=== PATIENT | male | born 1980 | race Caucasian/White ===

== ENCOUNTER 2017-11-16 18:59 | Observation (INO) | payer OTHER ==
[2017-11-16] MEDS ORDERED: Metoclopramide IV* 5 MG/ML 2 ML VIAL IV ONE (19:34)
[2017-11-16] MEDS ORDERED: Morphine VIAL* 4 MG/ML VIAL (1 ml vial) IV ONE (19:42)
[2017-11-16 19:57] LABS: Hematocrit 45 % (42-52); Hemoglobin 15.2 g/dl (14.0-18.0); Mean Corpuscular HGB Conc 34 g/dl (31-36); Mean Corpuscular Hemoglobin 32 pg (27-31); Mean Corpuscular Volume 95 fL (80-94); Platelet Count 191 10^3/ul (150-450); Red Blood Count 4.69 10^6/ul (4.00-5.40); Red Cell Distribution Width 13 % (10.5-15); White Blood Count 22.2 10^3/ul (3.5-10.8)
[2017-11-16 19:59] LABS: ABS Basophils 0.1 10^3/ul (0-0.2); ABS Eosinophils 0 10^3/ul (0-0.6); ABS Lymphocytes 0.7 10^3/ul (1.0-4.8); ABS Monocytes 0.7 10^3/ul (0-0.8); ABS Neutrophils 20.7 10^3/ul (1.5-7.7)
[2017-11-16 20:15] LABS: EGFR Non-African American 77.4 (>60)
[2017-11-16 20:18] LABS: ABS Nucleated RBC 0 10^3/ul; Eosinophil % 0.1 % (0-6); Lymphocyte % 3.1 % (25-47); Nucleated Red Blood Cells % 0
[2017-11-16] MEDS ORDERED: NS 0.9% 1000 ML* 1,000 ML IV ONE (20:28)
[2017-11-16] MEDS: NS 0.9% 1000 ML* 2,000 ML IV ONE (20:29)
[2017-11-16 21:00] LABS: INR 0.97 (0.77-1.02)
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
--- NOTE | 2017-11-16 21:26 | RAD ---
Indication: Left leg injury. 3 views of left leg demonstrates fracture of the lateral tibial plateau with distraction of the fracture fragments and displacement laterally. IMPRESSION: Fracture of the left knee lateral tibial plateau with distraction of the fracture fragments and lateral displacement of the main fracture fragment.. Joint effusion is noted.
--- NOTE | 2017-11-16 21:27 | RAD ---
Indication: Right shoulder pain. 4 views of the right shoulder demonstrates no fracture. No other bone or joint abnormality is identified. IMPRESSION: No fracture of the right shoulder.
[2017-11-16] MEDS ORDERED: ceFAZolin 2 GM PREMIX (*) 0 GM/0 ML BAG IVPB ONE (21:28)
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
[2017-11-16] MEDS ORDERED: Sodium Citrate/Citric Acid* 15 ML UDC ONE (21:46)
[2017-11-16] MEDS ORDERED: Sodium Citrate/Citric Acid* 15 ML UDC PO ONE (21:56)
[2017-11-16] MEDS ORDERED: fentaNYL* 50 MCG/ML 2 ML VIAL (100 MCG VIAL) ONE ×3 (22:03→23:09)
[2017-11-16] MEDS ORDERED: Lidocaine 2% PF * 5 ML VIAL ONE (22:24)
[2017-11-16] MEDS ORDERED: Propofol* 10 MG/ML 20 ML BTL IV PUSH ONE (22:24)
[2017-11-16] MEDS ORDERED: diPHENhydraMINE IV* 50 MG/ML 1 ml VIAL (BENADRYL) IV PRN (22:31)
[2017-11-16] MEDS ORDERED: Ondansetron INJ* 2 MG/ML VIAL IV PRN (22:31)
[2017-11-16] MEDS ORDERED: oxyCODONE/Acetamin 5/325 MG* TAB PO PRN (22:31)
[2017-11-16] MEDS ORDERED: Ketorolac INJ* 30 MG/ML 1 ML VIAL IV PRN (22:40)
[2017-11-16] MEDS ORDERED: Naloxone* 0.4 MG/ML 1 ML VIAL IV PRN (22:40)
[2017-11-16] MEDS: fentaNYL* 50 MCG/ML 2 ML VIAL (100 MCG VIAL) IV PRN ×4 (22:50→23:18)
[2017-11-17] MEDS: oxyCODONE/Acetamin 5/325 MG* TAB PO PRN ×4 (00:07→13:18)
[2017-11-17] MEDS: Morphine INJ* 10 MG/ML 1 ML CARPUJECT IV PRN ×2 (00:55→07:23)
[2017-11-17 06:29] LABS: ABS Basophils 0 10^3/ul (0-0.2); ABS Eosinophils 0 10^3/ul (0-0.6); ABS Lymphocytes 1.9 10^3/ul (1.0-4.8); ABS Neutrophils 7.1 10^3/ul (1.5-7.7); ABS Nucleated RBC 0 10^3/ul; Eosinophil % 0.4 % (0-6); Hematocrit 38 % (42-52); Hemoglobin 13.2 g/dl (14.0-18.0); Lymphocyte % 18.9 % (25-47); Mean Corpuscular HGB Conc 35 g/dl (31-36); Mean Corpuscular Hemoglobin 33 pg (27-31); Mean Corpuscular Volume 95 fL (80-94); Mean Platelet Volume 9.8 um3 (7.4-10.4); Nucleated Red Blood Cells % 0; Platelet Count 156 10^3/ul (150-450); Red Blood Count 4.02 10^6/ul (4.00-5.40); Red Cell Distribution Width 13 % (10.5-15)
[2017-11-17 07:24] LABS: Urine Appearance Clear; Urine Blood Negative (Negative); Urine Color Straw; Urine Ketones Negative (Negative); Urine Protein Negative (Negative); Urine Specific Gravity 1.008 (1.010-1.030); Urine Urobilinogen Negative (Negative)
--- NOTE | 2017-11-17 07:29 | RAD ---
INDICATION: Closed reduction left knee in operating room. COMPARISON: Comparison is made with a prior x-ray study of the left knee from November 16, 2017. TECHNIQUE: 3.1 seconds of intermittent fluoroscopic guidance were provided and a single spot film of the left knee was obtained in the operating room. FINDINGS: There is a comminuted depressed fracture of the lateral tibial plateau. IMPRESSION: INTRAOPERATIVE CONTROL FILMS. CPT II Codes: G9500
--- NOTE | 2017-11-17 07:52 | PN ---
Progress Note - Progress Note Date of Service: 11/17/17 SOAP: Subjective: [] Patient seen at bedside. He feels well with tolerable pain rated 5/10. Denies CP, SOB, dizziness. Objective: [ Vital Signs Temp 98.3 F 11/17/17 07:38 Pulse 60 11/17/17 07:38 Resp 16 11/17/17 09:03 BP 108/58 11/17/17 07:38 Pulse Ox 98 11/17/17 07:38 Intake & Output 11/16/17 11/17/17 11/17/17 18:59 06:59 18:59 Intake Total 3540 509 Output Total 1100 375 Balance 2440 134 Weight 245 lb Intake: IV Fluids 3000 509 LR 509 Lactated Ringersd 1000 Oral 540 Output: Urine 1100 375 Laboratory Last Values WBC 10.0 10^3/ul (3.5-10.8) 11/17/17 05:58 RBC 4.02 10^6/ul (4.00-5.40) 11/17/17 05:58 Hgb 13.4 g/dl (14.0-18.0) L 11/17/17 09:54 Hct 39 % (42-52) L 11/17/17 09:54 MCV 95 fL (80-94) H 11/17/17 05:58 MCH 33 pg (27-31) H 11/17/17 05:58 MCHC 35 g/dl (31-36) 11/17/17 05:58 RDW 13 % (10.5-15) 11/17/17 05:58 Plt Count 156 10^3/ul (150-450) 11/17/17 05:58 MPV 9.8 um3 (7.4-10.4) 11/17/17 05:58 Neut % (Auto) 70.5 % (38-83) 11/17/17 05:58 Lymph % (Auto) 18.9 % (25-47) L 11/17/17 05:58 [place] % (Auto) 9.9 % (0-7) H 11/17/17 05:58 Eos % (Auto) 0.4 % (0-6) 11/17/17 05:58 Baso % (Auto) 0.3 % (0-2) 11/17/17 05:58 Absolute Neuts (auto) 7.1 10^3/ul (1.5-7.7) 11/17/17 05:58 Absolute Lymphs (auto) 1.9 10^3/ul (1.0-4.8) 11/17/17 05:58 Absolute Monos (auto) 1.0 10^3/ul (0-0.8) H 11/17/17 05:58 Absolute Eos (auto) 0 10^3/ul (0-0.6) 11/17/17 05:58 Absolute Basos (auto) 0 10^3/ul (0-0.2) 11/17/17 05:58 Absolute Nucleated RBC 0 10^3/ul 11/17/17 05:58 Nucleated RBC % 0 11/17/17 05:58 INR (Anticoag Therapy) 0.97 (0.77-1.02) 11/16/17 19:52 APTT 25.5 seconds (26.0-36.3) L 11/16/17 19:52 Sodium 138 mmol/L (135-145) 11/17/17 09:54 Potassium 3.7 mmol/L (3.5-5.0) 11/17/17 09:54 Chloride 107 mmol/L (101-111) 11/17/17 09:54 Carbon Dioxide 27 mmol/L (22-32) 11/17/17 09:54 Anion Gap 4 mmol/L (2-11) 11/17/17 09:54 BUN 13 mg/dL (6-24) 11/16/17 19:52 Creatinine 1.08 mg/dL (0.67-1.17) 11/16/17 19:52 Est GFR ( Amer) 93.6 (>60) 11/16/17 19:52 Est GFR (Non-Af Amer) 77.4 (>60) 11/16/17 19:52 BUN/Creatinine Ratio 12.0 (8-20) 11/16/17 19:52 Glucose 95 mg/dL (70-100) 11/16/17 19:52 Lactic Acid 2.7 mmol/L (0.5-2.0) H* 11/16/17 19:52 Calcium 8.5 mg/dL (8.6-10.3) L 11/17/17 09:54 Total Bilirubin 0.70 mg/dL (0.2-1.0) 11/16/17 19:52 AST 34 U/L (13-39) 11/16/17 19:52 ALT 34 U/L (7-52) 11/16/17 19:52 Alkaline Phosphatase 80 U/L (34-104) 11/16/17 19:52 CK-MB (CK-2) 4.2 ng/mL (0.6-6.3) 11/16/17 19:52 Total Protein 7.0 g/dL (6.4-8.9) 11/16/17 19:52 Albumin 4.2 g/dL (3.2-5.2) 11/16/17 19:52 Globulin 2.8 g/dL (2-4) 11/16/17 19:52 Albumin/Globulin Ratio 1.5 (1-3) 11/16/17 19:52 Amylase 66 U/L (29-103) 11/16/17 19:52 Lipase 21 U/L (11.0-82.0) 11/16/17 19:52 Urine Color Straw 11/17/17 05:55 Urine Appearance Clear 11/17/17 05:55 Urine pH 5.0 (5-9) 11/17/17 05:55 Ur Specific Carnation 1.008 (1.010-1.030) L 11/17/17 05:55 Urine Protein Negative (Negative) 11/17/17 05:55 Urine Ketones Negative (Negative) 11/17/17 05:55 Urine Blood Negative (Negative) 11/17/17 05:55 Urine Nitrate Negative (Negative) 11/17/17 05:55 Urine Bilirubin Negative (Negative) 11/17/17 05:55 Urine Urobilinogen Negative (Negative) 11/17/17 05:55 Ur Leukocyte Esterase Trace (Negative) A 11/17/17 05:55 Urine WBC (Auto) Trace(0-5/hpf) (Absent) 11/17/17 05:55 Urine RBC (Auto) Trace(0-2/hpf) (Absent) 11/17/17 05:55 Urine Bacteria Absent (Absent) 11/17/17 05:55 Urine Glucose Negative (Negative) 11/17/17 05:55 ]General: Well appearing, NAD LLE: Immobilizer in place. DP/PT 2+, sensation intact distally. DF/PF intact. BL LE: calves supple and nontender without erythema, edema or palpable cords Assessment: []s/p closed reduction left tibial plateau Plan: []LYRIC skelton PT/OT
--- NOTE | 2017-11-17 08:06 | RAD ---
INDICATION: Traumatic tibial plateau fracture. COMPARISON: Correlation is made with a prior x-ray study of the left knee from November 16, 2017. TECHNIQUE: Contiguous axial sections were obtained of the left knee. Images were reconstructed in the sagittal and coronal planes. FINDINGS: There is a moderate to large lipohemarthrosis. There is an oblique comminuted fracture of the lateral tibial plateau. The fracture extends from the region of the tibial spines inferiorly through the lateral metaphysis. There is depression and significant lateral displacement of the major fracture fragment which is approximately 2.3 cm lateral to its normal position. In addition there are several fracture fragments with the which are displaced proximally adjacent to the lateral aspect of the lateral femoral condyle. The largest fracture fragment measures 1.6 x 1.8 cm in size. In addition there is a much smaller slightly comminuted fracture involving the medial tibial plateau with slight proximal distraction of several small fracture fragments. There is an oblique nondisplaced fracture of the fibular head. IMPRESSION: 1. OBLIQUE, COMMINUTED DISPLACED LATERAL TIBIAL PLATEAU FRACTURE IS DESCRIBED. 2. SLIGHTLY COMMINUTED MILDLY DISPLACED MEDIAL TIBIAL PLATEAU FRACTURE. 3. OBLIQUE NONDISPLACED FRACTURE OF THE PROXIMAL FIBULA. 4. LIPOHEMARTHROSIS.
[2017-11-17] MEDS ORDERED: Nicotine PATCH 14 MG/24 HR* PATCH TRANSDERM SCH (09:00)
[2017-11-17] MEDS ORDERED: Enoxaparin(*) 40 MG/0.4 ML SYR SUBCUT SCH (09:00)
[2017-11-17 10:07] LABS: Hematocrit 39 % (42-52); Hemoglobin 13.4 g/dl (14.0-18.0)
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
--- NOTE | 2017-11-17 12:00 | PN ---
Progress Note - Progress Note Date of Service: 11/17/17 Note: Spoke with patient this morning. Pain well controlled. He is hoping to continue using Percocet for pain control. He is concerned about pain control with increased activity. He would like to go home today if possible. Will reassess after next dose of Percocet, around 13:00, and physical therapy. If well tolerated will discharge home.
[2017-11-17 13:24] VITALS: BP 123/63
[2017-11-17] MEDS ORDERED: oxyCODONE TAB* 5 MG TAB PO ONE (16:21)
[2017-11-17] MEDS ORDERED: Nicotine Patch Removal NOTE PATCH OFF SCH (21:00)
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
== END 2017-11-17 17:00 | disposition home or self-care (01) ==
LOC: ED 18:59 → OR 21:52 → SSU 23:37
PROVIDERS: ADMIT Orthopaedic Surgery; ATTEND Orthopaedic Surgery
DX: S82.142A Displaced bicondylar fracture of left tibia, initial encounter for closed fracture (principal); V28.0XXA Motorcycle driver injured in noncollision transport accident in nontraffic accident, initial encounter; T14.8XXA Other injury of unspecified body region, initial encounter; F17.200 Nicotine dependence, unspecified, uncomplicated; R07.9 Chest pain, unspecified; R42 Dizziness and giddiness; M25.511 Pain in right shoulder; Z79.899 Other long term (current) drug therapy
CPT/HCPCS: 36415; 71045; 76000; 80048; 80053; 81003; 81015; 82150; 82553; 83605; 83690; 85014; 85018; 85025; 85610; 85730; 87086; 96374; 96375; 99284; A9270-GY; G0378; J0690; J1650; J2270; J2704; J2765; J3010

== ENCOUNTER 2017-11-24 10:33 | Observation (INO) | payer OTHER ==
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
[~2017-11-24 10:33] MED LIST: Buffered Lidocaine 0.9% SYRIN* 5 ML/SYR SYRINGE INTRADERM ONE; Sodium Citrate/Citric Acid* 15 ML UDC PO ONE
[2017-11-24] MEDS ORDERED: Sodium Citrate/Citric Acid* 15 ML UDC ONE (10:57)
[2017-11-24] MEDS ORDERED: Buffered Lidocaine 0.9% SYRIN* 5 ML/SYR SYRINGE ONE (10:57)
[2017-11-24] MEDS ORDERED: ceFAZolin 2 GM PREMIX (*) 2 GM/50 ML BAG IVPB ONE (10:57)
[2017-11-24] MEDS ORDERED: Bupivacaine 0.5% PF 10 ML VIAL INJ ONE (12:15)
[2017-11-24] MEDS ORDERED: fentaNYL* 50 MCG/ML 5 ML VIAL (250 MCG VIAL) ONE (13:22)
[2017-11-24] MEDS ORDERED: Midazolam* 1 MG/ML 2 ML VIAL (2 MG) ONE (13:23)
[2017-11-24] MEDS ORDERED: KETAMINE HCL* 50 MG/ML 10 ML VIAL ONE (13:28)
[2017-11-24] MEDS ORDERED: Dexamethasone IV* 4 MG/ML 1 ML (4 MG) ONE (17:01)
[2017-11-24] MEDS ORDERED: Ketorolac INJ* 30 MG/ML 1 ML VIAL ONE (17:01)
[2017-11-24] MEDS ORDERED: Propofol* 10 MG/ML 20 ML BTL IV PUSH ONE (17:01)
[2017-11-24] MEDS ORDERED: Ondansetron INJ* 2 MG/ML VIAL IV PRN ×2 (17:32→17:34)
[2017-11-24] MEDS ORDERED: Naloxone* 0.4 MG/ML 1 ML VIAL IV PRN (17:32)
[2017-11-24] MEDS ORDERED: diPHENhydraMINE PO* 25 MG PO PRN (17:34)
[2017-11-24] MEDS ORDERED: oxyCODONE/Acetamin 5/325 MG* TAB PO PRN (17:34)
[2017-11-24] MEDS ORDERED: Ondansetron ODT TAB* 4 MG PO PRN (17:34)
[2017-11-24] MEDS ORDERED: Magnesium Hydroxide LIQ* 30 ML UDC PO PRN (17:34)
[2017-11-24] MEDS ORDERED: Acetaminophen TAB* 325 MG PO PRN (17:34)
[2017-11-24] MEDS ORDERED: Bisacodyl SUPP* 10 MG SUPP PR PRN (17:34)
[2017-11-24] MEDS ORDERED: Polyethylene Glycol 3350* 17 GM PACKET PO PRN (17:34)
[2017-11-24] MEDS ORDERED: traZODone TAB* 50 MG TAB PO PRN (17:34)
[2017-11-24] MEDS ORDERED: diPHENhydraMINE IV* 50 MG/ML 1 ml VIAL (BENADRYL) IV PRN (17:34)
[2017-11-24] MEDS ORDERED: fentaNYL* 50 MCG/ML 2 ML VIAL (100 MCG VIAL) ONE ×3 (17:37→18:26)
[2017-11-24] MEDS: fentaNYL* 50 MCG/ML 2 ML VIAL (100 MCG VIAL) IV PRN ×5 (17:43→18:27)
[2017-11-24] MEDS ORDERED: Omeprazole CAP* 20 MG PO PRN (17:47)
[2017-11-24] MEDS ORDERED: Nicotine Inhaler* 10 MG AMP INH PRN (17:47)
[2017-11-24] MEDS ORDERED: Mouth Piece, Nicotine* 1 EACH CARTRIDGE INH ONE (17:47)
[2017-11-24] MEDS ORDERED: oxyCODONE/Acetamin 5/325 MG* TAB ONE (17:50)
[2017-11-24] MEDS: oxyCODONE/Acetamin 5/325 MG* TAB PO PRN ×2 (17:53→21:59)
--- NOTE | 2017-11-24 19:13 | RAD ---
INDICATION: Tibial plateau fracture COMPARISON: Left knee November 16, 2017 FINDINGS: 72.9 seconds of fluoroscopy were provided for the orthopedics department. Fluoroscopic spot imaging of the left knee were obtained for operative control and show ORIF of the tibial plateau fracture. CPT II Codes: G9500 (fluoro time doc)
[2017-11-24] MEDS ORDERED: oxyCODONE TAB* 5 MG TAB ONE (20:13)
[2017-11-24] MEDS ORDERED: Docusate CAP* 100 MG ONE (20:13)
[2017-11-24] MEDS: oxyCODONE TAB* 5 MG TAB PO PRN (20:15)
[2017-11-24] MEDS: Docusate CAP* 100 MG PO SCH (20:15)
[2017-11-24] MEDS: Nicotine PATCH 21 MG/24 HR* PATCH TRANSDERM SCH (20:53)
[2017-11-24] MEDS: Morphine VIAL* 4 MG/ML VIAL (1 ml vial) IV PRN ×2 (21:26→23:33)
[2017-11-24] MEDS: ceFAZolin 1 GM in Dextrose (*) 1 GM/50 ML BAG IVPB SCH (21:30)
[2017-11-25] MEDS: oxyCODONE TAB* 5 MG TAB PO PRN ×4 (00:18→12:49)
[2017-11-25] MEDS: Cyclobenzaprine TAB* 10 MG PO PRN ×2 (00:28→16:03)
[2017-11-25] MEDS ORDERED: Mouth Piece, Nicotine* 1 EACH CARTRIDGE INH PRN (01:00)
[2017-11-25] MEDS: Morphine VIAL* 4 MG/ML VIAL (1 ml vial) IV PRN ×2 (01:55→03:57)
[2017-11-25] MEDS: oxyCODONE/Acetamin 5/325 MG* TAB PO PRN ×4 (01:59→14:55)
[2017-11-25] MEDS: ceFAZolin 1 GM in Dextrose (*) 1 GM/50 ML BAG IVPB SCH ×2 (06:02→12:50)
[2017-11-25 06:35] LABS: Hematocrit 32 % (42-52); Hemoglobin 11.2 g/dl (14.0-18.0); Mean Platelet Volume 8.7 um3 (7.4-10.4); Platelet Count 273 10^3/ul (150-450)
[2017-11-25 06:55] LABS: EGFR Non-African American 103.4 (>60)
[2017-11-25] MEDS: Nicotine PATCH 21 MG/24 HR* PATCH TRANSDERM SCH (08:31)
[2017-11-25] MEDS: Docusate CAP* 100 MG PO SCH (08:31)
[2017-11-25 10:03] VITALS: BP 105/57
[2017-11-25] MEDS ORDERED: Enoxaparin(*) 40 MG/0.4 ML SYR SUBCUT SCH (12:00)
--- NOTE | 2017-11-25 12:25 | PN ---
Progress Note - Progress Note Date of Service: 11/25/17 SOAP: Subjective: []Patient seen at bedside. He is comfortable with 4/10 pain and desires to go home. He does continue to have mild left calf pain no worse than previous to surgery. He denies chest pain, shortness of breath or fever. Objective: [] Vital Signs Temp 98.3 F 11/25/17 07:17 Pulse 90 11/25/17 07:17 Resp 18 11/25/17 10:42 BP 105/57 11/25/17 07:17 Pulse Ox 93 11/25/17 07:17 Intake & Output 11/24/17 11/25/17 11/25/17 18:59 06:59 18:59 Intake Total 1900 3227 445 Output Total 1000 400 Balance 1900 2227 45 Weight 230 lb Intake: IV Fluids 1500 1237 225 LR 1400 1237 225 NS 100ML, Cefazolin 2G 100 IVPB 100 ABX - CEFAZOLIN 100 Oral 400 1890 220 Output: Urine 800 400 Estimated Blood Loss 200 Laboratory Last Values Hgb 11.2 g/dl (14.0-18.0) L 11/25/17 06:24 Hct 32 % (42-52) L 11/25/17 06:24 Plt Count 273 10^3/ul (150-450) 11/25/17 06:24 MPV 8.7 um3 (7.4-10.4) 11/25/17 06:24 Sodium 136 mmol/L (135-145) 11/25/17 06:24 Potassium 4.2 mmol/L (3.5-5.0) 11/25/17 06:24 Chloride 105 mmol/L (101-111) 11/25/17 06:24 Carbon Dioxide 25 mmol/L (22-32) 11/25/17 06:24 Anion Gap 6 mmol/L (2-11) 11/25/17 06:24 BUN 14 mg/dL (6-24) 11/25/17 06:24 Creatinine 0.84 mg/dL (0.67-1.17) 11/25/17 06:24 Est GFR ( Amer) 125.1 (>60) 11/25/17 06:24 Est GFR (Non-Af Amer) 103.4 (>60) 11/25/17 06:24 BUN/Creatinine Ratio 16.7 (8-20) 11/25/17 06:24 Glucose 169 mg/dL (70-100) H 11/25/17 06:24 Calcium 8.6 mg/dL (8.6-10.3) 11/25/17 06:24 General: Well appearing, NAD LLE: IROM in place. Calf supple without erythema, edema or palpable cords, is tender to palpation. Assessment: []L tibial plateau fx sp ORIF Plan: []NWB LLE PT/OT Lovenox for DVT prophylaxis Dopplar negative for DVT, does have superficial vein thrombosis. Knows to apply heat packs and given warning signs for DVT
--- NOTE | 2017-11-25 14:12 | RAD ---
HISTORY: Calf pain in a patient with a history of tibial plateau fracture TECHNIQUE: Multiple transverse and longitudinal ultrasound images were obtained of the veins of the right lower extremity using grayscale, color Doppler, and spectral Doppler imaging with and without compression and with augmentation. FINDINGS: VEINS: The common femoral vein, deep femoral vein, femoral vein and popliteal vein are compressible throughout their course, with normal flow on color Doppler imaging and normal response to augmentation on spectral Doppler imaging. Overlying the area of pain indicated by the patient there is loss of color flow and compressibility of superficial veins at the mid calf. SOFT TISSUES: Grossly normal. No large popliteal fossa cyst was identified. IMPRESSION: 1. No sonographic evidence of deep vein thrombosis. 2. Superficial vein thrombosis at the mid calf corresponding to the site of tenderness.
[2017-11-25] MEDS ORDERED: Nicotine Patch Removal NOTE PATCH OFF SCH (21:00)
--- NOTE | 2017-11-29 06:23 | OP ---
CC: PCP (?) DATE OF OPERATION: 11/24/17 - ROOM #340 DATE OF : 82 SURGEON: Lalito Corona MD NURSING EDUCATION CONSULTANT: JOSEF Sepulveda. An nursing assistant was needed for the entirety of the case to help with positioning, retraction and was utilized throughout all portions of the case. ANESTHESIOLOGIST: Dr. Jensen. PRE-OP DIAGNOSIS: Left knee tibial plateau lateral split depression fracture with subluxation of the joint. POST-OP DIAGNOSIS: Left knee tibial plateau lateral split depression fracture with subluxation of the joint. OPERATIVE PROCEDURE: 1. Open reduction internal fixation of the lateral plateau with allograft. 2. Open lateral meniscus repair. COMPLICATIONS: None. ESTIMATED BLOOD LOSS: 50 cc. TOURNIQUET TIME: 120 minutes in 250 mmHg. IMPLANTS: Synthes proximal tibial plateau plates with the appropriate length screws. INDICATIONS: Evens Hardy is a 37-year-old male, who was previously seen approximately 8 days ago for a closed fracture subluxation of his lateral plateau. He was then reduced, closed by me and placed in a brace. Based on the mechanism of injury, the type of fracture, it was determined this is surgical, we were awaiting his soft tissues to calm down, so we could proceed with surgical management. He was seen in the office 2 days ago and the soft tissues had been calming down. Therefore, we elected to proceed with surgery on today because there was not any further swelling or blistering and compromised skin. Risks and benefits of surgery were discussed at length included but not limited to bleeding, infection, damage to nerves, vessels, surrounding structures, wound nonhealing, persistent pain, need for further surgery, scarring, stiffness , incomplete relief of symptoms, risks of anesthesia, risk of DVT, risk of arthritis, failure of the repair, need for further surgery, symptomatic hardware , risk of anesthesia. He has elected to proceed. DESCRIPTION OF PROCEDURE: The patient was greeted in the preoperative area by the attending surgeon. Correct extremity was marked and consent was confirmed. The patient was then brought back to the operating suite, where he was placed in supine position on the operating table. He then underwent general anesthesia and endotracheal intubation after which a bump was placed under the ipsilateral buttock. A tourniquet was placed high on the proximal leg. The left leg was then prepped and draped in the usual sterile fashion beginning with chlorhexidine soap, scrub, and alcohol wipe and a final prep of ChloraPrep. After appropriate surgical pause indicating side, site, procedure, administration of antibiotics, the limb was exsanguinated and the tourniquet inflated to 250 mmHg. A lazy S-incision was centered beginning distally in Gerdy's tubercle crossing the joint line in the lazy S configuration proximally into the IT band because he had a large fragment intra-articularly displaced and then needed to be identified. Soft tissues were dissected. The skin was taken with full flaps. The IT band was identified and split in line with its fibers. Part of the tendon was released from Gerdy's tubercle to expose the fracture fragment, which was quite anterior. There was evidence of fibular fracture as well as posterior comminution and depression. The loose body fragment was palpable under the capsule once IT band was excised. At this point , a sub-meniscal arthrotomy was then made with 15 blade. Soft tissues were carefully tagged with the #2 Ethibond suture. At this point identified that the meniscus was completely detached from the capsule and was incarcerated in the fragment. The capsule was then teed proximally so that the joint articular fragment was identified. It was removed and placed in the back table for later placement intra-articularly. Meticulous dissection was done to expose the fracture fragments. There was abundant clot that was removed. The fracture fragment was repeated very carefully so that it does not cause any further comminution. The articular cartilage was completely damaged. The meniscus was then identified and again this is a capsular avulsion. These were then tagged with #2 Ethibond sutures for later repair and closure. At this point, the fracture fragments were carefully identified booked open. This exposed some of the impacted joint space. The tamp was then used to gently elevate the posterior joint space. There was a posterior fragment as well. It was very difficult to control that was impacted proximally. At this time, once the pieces were fully exposed, there was a large gaping void of bone. The previous loose piece was then brought back in and keyed in position and eventually once the appropriate reduction was obtained showing about a millimeter at least best fit for the piece as well as the best articular reduction. This was then secured with K wires. Once this was properly done, some of the fixation had to be done in extension because the piece would not be supported in flexion. Once the reduction was made and maintained, this was secured with several K wires proximally just below the joint surface. Then the proximal plateau locking plate was then brought into the field and the appropriate length was determined. The nonlocking screw was then inserted distally near the apex of the fracture. This had excellent purchase. The plate was positioned appropriately to allow to grab as much room as possible. K wires were placed to ensure appropriate placement at this point. The variable angle locking screws were placed proximally to try to capture as much of the fracture fragments and then down the shaft as well. This allowed for acceptable reduction. Distally, a nonlocking screw was placed as well. This was done with fluoroscopic guidance both with the AP and lateral views. The lateral view looked acceptable. The joint surface looked congruent. In the AP, there was some evidence of at least 1 mm step off from that middle loose fragment that had been placed. Bone graft had been previously placed prior to fixation, this was cancellous chips. Once the reduction was obtained and maintained, the knee was taken through range of motion. The joint was visualized and there was no obvious large gap, although this is a very bad injury. Wounds were then copiously irrigated with sterile saline. The capsule was then addressed. There were side to side stitches passed to close the T portion of the capsule and then the sutures that were placed through the meniscus were then passed through the capsule to repair the meniscus to the capsule, but the distal capsule sutures were passed through the plate to allow for fixation towards the plate. Then, the lateral meniscal sutures were tied over that. The wounds were irrigated again. The fascia from the anterior lateral compartment was then closed with 0 Vicryl. The compartments were soft and compressible. The IT band was closed also with 0 Vicryl in interrupted fashion for water tight seal. The wounds were copiously irrigated with sterile saline. The skin was closed with 2-0 Vicryl and macy. The knee was injected intra-articularly as well as along the incision with 0.25% Marcaine plain. The compartments were assessed and found to be soft and compressible. Sterile dressings were applied. Cryo/Cuff as well as hinged knee brace was placed and locked in extension. Patient was then awoken from anesthesia and transferred to PACU in stable condition. POSTOPERATIVE PLAN: He will be admitted overnight for pain control and compartment checks. He will receive 24 hours of postoperative antibiotics. DVT prophylaxis will be either aspirin or Lovenox based on the patient's preference due to no family history but he is an avid smoker. The patient was advised again to quit smoking. He has not been smoking since being treated self. He will be allowed range of motion but no weightbearing. He will start working with physical therapy tomorrow. I will see the patient back in approximately 2 weeks with repeat x-rays. Postoperative exam demonstrates he is able to dorsiflex and plantar flex his ankle. He is sensate to light touch grossly distally with brisk cap refill. [id number]/[facility] #: [id number] MANI
--- NOTE | 2017-12-01 19:54 | DS ---
DISCHARGE SUMMARY: DATE OF ADMISSION: 11/24/17 DATE OF DISCHARGE: 11/25/17 PROVIDER: Dr. Lalito Corona.* (DICTATED BY JOSEF PHILLIPS) HEEL BLACKER: JOSEF Sepulveda. PRE-OP DIAGNOSES: Left knee tibial plateau lateral split depression fracture with subluxation of the joint. OPERATIVE PROCEDURE: 1. Open reduction and internal fixation of the lateral plateau with allograft. 2. Open lateral meniscus repair. HISTORY: Evens Hardy is a 37-year-old male, who was previously seen approximately 8 days before this admission for a closed fracture subluxation of his lateral plateau. He was then reduced, closed, and placed in a brace. Due to this injury, procedure elected was open reduction and internal fixation of the lateral plateau with allograft and open lateral meniscus repair. HOSPITAL COURSE: The patient was admitted to [facility] on . He underwent a one open reduction and internal fixation of the lateral plateau with allograft and open lateral meniscus repair without complications. He recovered briefly in the PACU and was transferred to the short-stay surgical unit in stable condition. On postop day 1, he is well appearing and in no acute distress. IROM brace was in place. Calf was supple without erythema, edema, or palpable cords. A Doppler study was done to rule out DVT as the patient was having pain in the left calf, no DVT was found, but a superficial vein thrombosis was noted. The patient was instructed to apply heat packs and given warning signs for DVT. Vital signs included temperature of 98.3, pulse rate 90, respiratory rate 16, oxygen saturation 93%, blood pressure 105/57. Labs: Hemoglobin 11.3, hematocrit 32. Glucose was 169. The rest of the BMP was within normal limits. The patient was deemed to be medically and orthopedically stable for discharge home. DISCHARGE MEDICATIONS: 1. Continue omeprazole 20 mg p.o. daily p.r.n. 2. Sennosides 50 mg tab 1 tab p.o. t.i.d. 3. Docusate 100 mg p.o. b.i.d. 4. Acetaminophen 650 mg p.o. q.4 hours p.r.n. 5. Lovenox 40 mg per 24 mL syringe q.24 hours. 6. Percocet 5/325 one to 2 tabs every 4 to 6 hours as needed for pain, max up to 8 per day. DISCHARGE INSTRUCTIONS: The patient will be nonweightbearing of the left lower extremity. IROM brace is to be worn at all times. The patient may shower after 11/27/17. May allow water to run around the incision, but do not submerge the wound. Dressing changes daily starting 11/27/17, with gauze and Rian bandage. Continue physical therapy, range of motion as tolerated, and IROM brace. Okay to have some soreness, but stop if pain. Pain control with Percocet 5/325 to take 1 to 2 tabs every 4 to 6 hours as needed for pain, max 8 per day. Please wean off as soon as able. Cyclobenzaprine 10 mg tabs 1 tab every 8 hours use for muscle spasm as needed. May use Tylenol for pain, do not exceed 4000 mg of Tylenol per day from all sources with note that Percocet does contain Tylenol also known as acetaminophen. Prevent blood clots with Lovenox 40 mg subcu injections daily for 30 days. If you have calf pain, redness, or swelling, call our office right away. Follow up with Dr. Corona in 10 to 14 days. Call for an appointment. JOSEF PHILLIPS [id number]/[facility] #: [id number] MTDD
== END 2017-11-25 17:08 | disposition home or self-care (01) ==
LOC: OR 10:33 → SSU 19:50
PROVIDERS: ADMIT Orthopaedic Surgery; ATTEND Orthopaedic Surgery
DX: S82.142A Displaced bicondylar fracture of left tibia, initial encounter for closed fracture (principal); V29.88XA Motorcycle rider (driver) (passenger) injured in other specified transport accidents, initial encounter; F17.200 Nicotine dependence, unspecified, uncomplicated
CPT/HCPCS: 36415; 76001; 80048; 85014; 85018; 85049; 96374; 96375; A9270-GY; C1713; C1776; G0378; J0690; J1100; J1650; J1885; J2250; J2270; J2704; J3010